=== PATIENT | male | born 1960 | race Caucasian/White ===

== ENCOUNTER 2016-05-18 20:18 | Emergency (ER) | payer MEDICAID ==
--- NOTE | 2016-05-18 20:10 | EDPHY ---
Medical Decision Making ED Course/Re-evaluation: CHIEF COMPLAINT: Hallucinations HISTORY OF PRESENT ILLNESS: This patient is a homeless 56 year old male arriving by EMS who presents to the Emergency Department complaining of visual hallucinations beginning last night after he snorted what he believes was a line of meth while in [place] last night. Upon arrival, he is alert and cooperative. He tells me that he drank a pint of vodka today to "try to calm ( his) nerves". He articulates a desire to be transferred to the [facility] for detox. He has an unspecified mental health history but no additional pertinent medical history. REVIEW OF SYSTEMS: A 10 point review of systems was performed and is negative with the exception of the elements mentioned in the history of present illness. PHYSICAL EXAM: General Appearance: Alert, well hydrated, appropriate, and non-toxic appearing. Head: Atraumatic without scalp tenderness or obvious injury Eyes: Pupils equal, round, reactive to light and accommodation, EOMI, no trauma , no injection. Ears: Clear bilaterally, no perforation, normal landmarks Nose: Atraumatic, no rhinorrhea, clear. Throat: There is no erythema or exudates, no lesions, normal tonsils, mucus membranes moist. Neck: Supple, 2+ carotid upstroke, nontender, no lymphadenopathy. Respiratory: No retractions, no distress, no wheezes, and no accessory muscle use. Lungs are clear to auscultation bilaterally. Cardiovascular: Regular rate and rhythm, no murmurs, rubs, or gallops. Bilateral carotid, radial, dorsalis pedis, and posterior tibial pulses intact. Good capillary refill all extremities. Gastrointestinal: Abdomen is soft, nontender, non-distended, no masses, no rebound, no guarding, no peritoneal signs. Musculoskeletal: Normal active ROM of all extremities, atraumatic. Neurological: Alert, appropriate, and interactive. The patient has normal DTRs and non-focal cranial nerves, motor, sensory, and cerebellar exam. Skin: No rashes, good turgor, no nodules on palpation. Past medical history: Pre-diabetes, psychiatric history. Past surgical history: Denies. Family history: Non-contributory. Social history: Homeless. DIFFERENTIAL DIAGNOSIS: The differential diagnosis for the patient's hallucinations included but was not limited to substance abuse, functional and major depression, situational depression, medication side effect, and alcohol abuse. MEDICAL DECISION MAKING: Patient is in no acute distress. He is ambulating appropriately, is alert and cooperative. He articulates a desire to go to the [facility] for detoxification. I see no medical reason why he should not be transferred to the [facility] at this time. Departure - Departure Disposition: Home, Routine, Self-Care Clinical Impression: Substance abuse Condition: Good Instructions: Polysubstance Abuse (ED) Additional Instructions: Go directly to the [facility] for detox. Return to the Emergency Department if you experience confusion, dizziness, seizure, tremors, worsening hallucinations, or other serious concerns. Referrals: [facility] Detox 24 Hours [Outside] - As per Instructions Report Scribed for: Cesar Green Report Scribed by: Sari Eduardo Date of Report: 05/18/16 Time of Report: 20:18
[2016-05-18 21:01] VITALS: BP 127/83; PULSE 94; RESP 18; TEMP 98.2; O2SAT 92
== END 2016-05-18 20:59 | disposition home or self-care (01) ==
DX: F10.10 Alcohol abuse, uncomplicated (principal)

== ENCOUNTER 2016-05-26 23:21 | Emergency (ER) | payer MEDICAID ==
[2016-05-26 23:33] VITALS: RESP 18
--- NOTE | 2016-05-26 23:34 | EDPHY ---
H & P Time Seen by Provider: 05/26/16 23:25 HPI/ROS: HPI The patient presents brought in by ambulance from the [facility] because he is intoxicated and unable to ambulate. He was seen earlier today at [facility] Emergency room and was transferred to the [facility], however upon arrival he was nonambulatory, thus was transferred here for further care. He denies any complaints.. REVIEW OF SYSTEMS Constitutional: No fever, no chills. Eyes: No discharge. ENT: No sore throat. Cardiovascular: No chest pain, no palpitations. Respiratory: No cough, no shortness of breath. Gastrointestinal: No abdominal pain, no vomiting. Genitourinary: No hematuria. Musculoskeletal: No back pain. Skin: No rashes. Neurological: No headache. Soc Hx: Alcohol abuse PHYSICAL General Appearance: Alert, obviously intoxicated Eyes: Pupils equal and round no pallor or injection ENT, Mouth: Mucous membranes moist Respiratory: There are no retractions, lungs are clear to auscultation Cardiovascular: Regular rate and rhythm Gastrointestinal: Abdomen is soft and non-tender, no masses, bowel sounds normal Neurological: A&O, moves all extremities Skin: Warm and dry, no rashes Musculoskeletal: Neck is supple non tender Extremities: symmetrical, full range of motion Psychiatric: Patient is oriented X 3, there is no agitation Source: Patient Exam Limitations: No limitations Constitutional: Initial Vital Signs Temperature (C) 36.3 C 05/26/16 23:31 Heart Rate 72 05/26/16 23:31 Respiratory Rate 18 05/26/16 23:31 Blood Pressure 122/72 H 05/26/16 23:31 O2 Sat (%) 93 05/26/16 23:31 O2 Delivery Mode Room Air O2 (L/minute) 2 Allergies/Adverse Reactions: morphine Allergy (Verified 05/26/16 23:33) Home Medications: Medication Instructions Recorded Unobtainable 05/26/16 Medical Decision Making ED Course/Re-evaluation: 11:15 p.m.- I met the paramedics at the bedside to obtain report. 1:20 a.m.- The patient is sobering up and is now awake and alert. He was able to walk without difficulty. He will be sent back to the [facility]. Differential Diagnosis: This is a 56-year-old man who [facility], unable to walk the sent here for further care. He has no acute complaints. Differential diagnosis includes alcohol intoxication, polysubstance abuse, less likely Wernicke encephalopathy. Departure - Departure Disposition: Home, Routine, Self-Care Clinical Impression: Alcoholic intoxication Condition: Good Instructions: Alcohol Intoxication (ED) Referrals: [facility] 24 Hours [Outside] - As per Instructions
[2016-05-27 01:22] VITALS: BP 123/81; PULSE 100; TEMP 97.7; O2SAT 93
== END 2016-05-27 01:45 | disposition home or self-care (01) ==
LOC: EDUNIT#
DX: F10.129 Alcohol abuse with intoxication, unspecified (principal)

== ENCOUNTER 2016-09-19 13:01 | Emergency (ER) | payer MEDICAID ==
--- NOTE | 2016-09-19 14:30 | EDPHY ---
H & P Smoking Status: Current every day smoker Time Seen by Provider: 09/19/16 14:19 HPI/ROS: CHIEF COMPLAINT: HISTORY OF PRESENT ILLNESS: Patient was brought in by police when his 7th grade social studies teacher went to check on him and he said there are "aliens being in his face telling him to do things." The patient tells me a that he had a "worm implanted in my head the other day" and is invasive about answering questions to other things that he is feeling seeing or thinking. He was placed on a 72 hour mental health hold for acute psychotic behavior and delusions. This was prior to his arrival. He denies any medical complaints except having to "unstick my toes" this morning before report shoes on REVIEW OF SYSTEMS: Eye: no change in vision ENT: no sore throat Cardiac: no chest pain or syncope Pulmonary: no cough or SOB Abdomen: no vomiting, diarrhea, abdominal pain Musculoskeletal: no back pain Skin: no rash Neuro: no headache Constitutional: no fever : no urinary symptoms A comprehensive 10 point review of systems is otherwise negative aside from elements mentioned in the history of present illness. PAST MEDICAL HISTORY: Previous records reviewed includes alcoholism and "pre diabetes" Social history: Smoker, admits alcohol, denies methamphetamine. General Appearance: Alert and conversant, cooperative. Eyes: No scleral icterus. ENT, Mouth: Normal mucous membranes. No oral laceration or tongue abrasion. Respiratory: Normal respiratory effort, breath sounds equal, lungs are clear to auscultation. Cardiovascular: Regular rate and rhythm. Gastrointestinal: Abdomen is soft and non tender. Neurological: Alert and oriented x3. Normally conversant. Face symmetric, normal movement and sensation in all extremities. Not acutely tremulous. Skin: Warm and dry, no rashes. Musculoskeletal: No peripheral edema and no joint swelling. Normal range of motion of the neck. Psychiatric: Patient has some paranoid delusions as noted in the HPI. Denies suicidal ideation. Denies overdose. Emergency Department course/MDM: Mental health hold placed prior to arrival. Screening labs performed. 2315: Signed out to Rolando with psychiatric evaluation in progress, clinically sober now (George Retana) Constitutional: Initial Vital Signs Temperature (C) 36.9 C 09/19/16 13:08 Heart Rate 80 09/19/16 13:08 Respiratory Rate 14 09/19/16 13:08 Blood Pressure 151/78 H 09/19/16 13:08 O2 Sat (%) 94 09/19/16 13:08 O2 Delivery Mode Room Air Allergies/Adverse Reactions: morphine Allergy (Verified 09/19/16 13:08) Home Medications: Medication Instructions Recorded Unobtainable 05/26/16 Medical Decision Making Differential Diagnosis: Differential for acute psychosis considered including but not limited to alcohol , drugs, bipolar disorder, schizophrenia or schizoaffective. (George Retana) Other Provider: 11:52 p.m.- The patient was seen by the mental health worker and deemed stable. Apparently , he has a longstanding history of these delusions of aliens. However, today he was working with a new case making machine operator who was not aware of this and was concerned. He is suitable for discharge and I will lift hold. (Mallory Marshall) - Data Points Laboratory Results: Laboratory Results 09/19/16 14:23 09/19/16 14:23 09/19/16 09/19/16 09/19/16 14:23 14:23 14:23 WBC 6.24 10^3/uL 10^3/uL (3.80-9.50) RBC 4.29 10^6/uL L 10^6/uL (4.40-6.38) Hgb 13.2 g/dL L g/dL (13.7-17.5) Hct 40.2 % % (40.0-51.0) MCV 93.7 fL fL (81.5-99.8) MCH 30.8 pg pg (27.9-34.1) MCHC 32.8 g/dL g/dL (32.4-36.7) RDW 14.3 % % (11.5-15.2) Plt Count 234 10^3/uL 10^3/uL (150-400) MPV 9.2 fL fL (8.7-11.7) Neut % (Auto) 47.2 % % (39.3-74.2) Lymph % (Auto) 36.7 % % (15.0-45.0) [place] % (Auto) 11.1 % % (4.5-13.0) Eos % (Auto) 4.0 % % (0.6-7.6) Baso % (Auto) 0.5 % % (0.3-1.7) Nucleat RBC Rel Count 0.0 % % (0.0-0.2) Absolute Neuts (auto) 2.95 10^3/uL 10^3/uL (1.70-6.50) Absolute Lymphs (auto) 2.29 10^3/uL 10^3/uL (1.00-3.00) Absolute Monos (auto) 0.69 10^3/uL 10^3/uL (0.30-0.80) Absolute Eos (auto) 0.25 10^3/uL 10^3/uL (0.03-0.40) Absolute Basos (auto) 0.03 10^3/uL 10^3/uL (0.02-0.10) Absolute Nucleated RBC 0.00 10^3/uL 10^3/uL (0-0.01) Immature Gran % 0.5 % % (0.0-1.1) Immature Gran # 0.03 10^3/uL 10^3/uL (0.00-0.10) Sodium 149 mEq/L H mEq/L (134-144) Potassium 3.8 mEq/L mEq/L (3.5-5.2) Chloride 111 mEq/L H mEq/L (97-110) Carbon Dioxide 24 mEq/l mEq/l (22-31) Anion Gap 14 mEq/L mEq/L (8-16) BUN 12 mg/dL mg/dL (7-23) Creatinine 0.8 mg/dL mg/dL (0.7-1.3) Estimated GFR > 60 Glucose 121 mg/dL H mg/dL (70-100) Calcium 9.2 mg/dL mg/dL (8.5-10.4) Urine Opiates Screen NEGATIVE (NEGATIVE) Urine Barbiturates NEGATIVE (NEGATIVE) Ur Phencyclidine Scrn NEGATIVE (NEGATIVE) Ur Amphetamine Screen NEGATIVE (NEGATIVE) U Benzodiazepines Scrn NEGATIVE (NEGATIVE) Urine Cocaine Screen NEGATIVE (NEGATIVE) U Marijuana (THC) Screen NEGATIVE (NEGATIVE) Ethyl Alcohol 247 mg/dL H mg/dL (0-10) Departure - Departure Disposition: Home, Routine, Self-Care Clinical Impression: Alcohol intoxication Qualifiers: Complication of substance-induced condition: uncomplicated Qualified Code(s): F10.920 - Alcohol use, unspecified with intoxication, uncomplicated Condition: Good Instructions: Alcohol Intoxication (ED) Referrals: [facility],. [Clinic] - As per Instructions Shiva Desai MD [Medical Doctor] - As per Instructions
[2016-09-19 14:36] LABS: % IMMATURE GRANULYOCYTES 0.5 % (0.0-1.1); ABSOLUTE IMMATURE GRANULOCYTES 0.03 10^3/uL (0.00-0.10); ADD DIFF? NO; ADD MORPH? NO; ADD SCAN? NO; ATYPICAL LYMPHOCYTE FLAG 10 (0-99); FRAGMENT RBC FLAG 0 (0-99); HEMATOCRIT 40.2 % (40.0-51.0); HEMOGLOBIN 13.2 g/dL (13.7-17.5); LEFT SHIFT FLG 0 (0-99); LIPEMIA HEMOLYSIS FLAG 80 (0-99); MEAN CELL HEMOGLOBIN 30.8 pg (27.9-34.1); MEAN CELL HEMOGLOBIN CONCENTR. 32.8 g/dL (32.4-36.7); MEAN CELL VOLUME 93.7 fL (81.5-99.8); MEAN PLATELET VOLUME 9.2 fL (8.7-11.7); PLATELET CLUMPS FLAG 0 (0-99); PLATELET COUNT 234 10^3/uL (150-400); RED BLOOD CELL COUNT 4.29 10^6/uL (4.40-6.38); RED CELL DISTRIBUTION WIDTH 14.3 % (11.5-15.2)
[2016-09-19 14:50] LABS: ANION GAP 14 mEq/L (8-16); CALCIUM 9.2 mg/dL (8.5-10.4); CARBON DIOXIDE 24 mEq/l (22-31); CHLORIDE 111 mEq/L (97-110); CREATININE 0.8 mg/dL (0.7-1.3); ETHANOL SERUM 247 mg/dL (0-10); GLOMERULAR FILTRATION RATE > 60; GLUCOSE 121 mg/dL (70-100); POTASSIUM 3.8 mEq/L (3.5-5.2); SODIUM 149 mEq/L (134-144)
[2016-09-19 17:23] VITALS: RESP 16
[2016-09-20 02:10] VITALS: BP 130/77; PULSE 74; TEMP 97.9; O2SAT 92
== END 2016-09-20 02:10 | disposition home or self-care (01) ==
DX: F10.920 Alcohol use, unspecified with intoxication, uncomplicated (principal); F17.200 Nicotine dependence, unspecified, uncomplicated
CPT/HCPCS: 80305; G0480

== ENCOUNTER 2016-09-25 19:39 | Emergency (ER) | payer MEDICAID ==
[2016-09-25 19:47] VITALS: TEMP 98.4
--- NOTE | 2016-09-25 19:48 | EDPHY ---
H & P HPI/ROS: HPI CHIEF COMPLAINT: Medical clearance for long term, alcohol intoxication HISTORY OF PRESENT ILLNESS: This patient is a 56-year-old male, significant past medical history for chronic delusions, alcohol use and pre diabetes he presents emergency room by police and EMS for acute agitation alcohol intoxication. According to EMS and police please make contact with him as he was standing out in his yd flashing his genitals at his neighbor's and screaming. He appeared highly intoxicated alcohol. The please note that he does have large for his rest. They brought him here to the emergency room for medical clearance for long term. EMS reports that he is intoxicated with alcohol noted to be tachycardic in the 120s. Patient will not tell me how much he drank. Past Medical History: Alcoholism, daily alcohol use, chronic delusions, pre diabetes Past Surgical History: Unknown surgical history Social History: daily alcohol use Family History: Noncontributory ROS REVIEW OF SYSTEMS: A comprehensive 10 point review of systems is otherwise negative aside from elements mentioned in the history of present illness. Exam Constitutional intoxicated, triage nursing summary reviewed, vital signs reviewed, awake/alert. Eyes normal conjunctivae and sclera, EOMI, PERRLA. HENT normal inspection, atraumatic, moist mucus membranes, no epistaxis, neck supple/ no meningismus, no raccoon eyes. Respiratory clear to auscultation bilaterally, normal breath sounds, no respiratory distress, no wheezing. Cardiovascular tachycardic, regular rhythm, no murmur, no edema, distal pulses normal. Gastrointestinal soft, non-tender, no rebound, no guarding, normal bowel sounds, no distension, no pulsatile mass. Genitourinary no CVA tenderness. Musculoskeletal no midline vertebral tenderness, full range of motion, no calf swelling, no tenderness of extremities, no meningismus, good pulses, neurovascularly intact. Skin pink, warm, & dry, no rash, skin atraumatic. Neurologic intoxicated, smells of alcohol awake, alert and oriented x 3, AAOx3 , moves all 4 extremities equally, motor intact, sensory intact, CN II-XII intact, normal cerebellar, normal vision, normal speech. Psychiatric intoxicated Heme/Lymph/Immune no lymphadenopathy. Differential Diagnosis: Includes but is not limited to in a particular order, acute alcohol intoxication, chronic delusions, dehydration, cardiac arrhythmia Medical Decision Making: Plan for this patient full set of vitals, panel monitor, breath alcohol. Re-evaluation: 2009: Breath alcohol 317. 2032: Re-examination at this time patient is resting comfortably is, cooperative. He is intoxicated with alcohol. I feel at this time is medically cleared for long term. He does not want hurt himself or anybody else he does not appear acutely psychotic. His initial vitals were tachycardic when he arrived. Will recheck to make sure they are stable for discharge long term. Source: Patient, Police, EMS - Medical/Surgical History Hx Asthma: No Hx Chronic Respiratory Disease: No Hx Diabetes: No Hx Cardiac Disease: No Hx Renal Disease: No Hx Cirrhosis: No Hx Alcoholism: Yes Hx HIV/AIDS: No Hx Splenectomy or Spleen Trauma: No Other PMH: unknown - Social History Smoking Status: Current every day smoker Constitutional: Initial Vital Signs Temperature (C) 36.9 C 09/25/16 19:44 Heart Rate 126 H 09/25/16 19:44 Respiratory Rate 17 09/25/16 19:44 Blood Pressure 173/122 H 09/25/16 19:44 O2 Sat (%) 91 L 09/25/16 19:44 O2 Delivery Mode Room Air Allergies/Adverse Reactions: morphine Allergy (Verified 09/25/16 19:44) Home Medications: Medication Instructions Recorded Unobtainable 05/26/16 Departure - Departure Disposition: Home, Routine, Self-Care Clinical Impression: Alcohol intoxication Condition: Good Instructions: Alcohol Intoxication (ED) Additional Instructions: 1. This patient is medically cleared for long term. Referrals: Patient,NotPresent [Unknown] - As per Instructions
[2016-09-25 20:47] VITALS: BP 126/90; PULSE 95; RESP 16; O2SAT 96
== END 2016-09-25 20:46 | disposition home or self-care (01) ==
LOC: EDUNIT#
DX: F10.129 Alcohol abuse with intoxication, unspecified (principal); F17.200 Nicotine dependence, unspecified, uncomplicated

== ENCOUNTER → 2017-06-24 | Outpatient (CLI) | payer MEDICAID | LOC: FLAB 12:29 → FIMAGING 12:29 → EDSTATUS 12:29 | DX: Z11.1 Encounter for screening for respiratory tuberculosis (principal); Z86.11 Personal history of tuberculosis ==